=== PATIENT | male | born 1955 | race Caucasian/White ===

== ENCOUNTER 2018-06-01 06:31 | Day surgery (SDC) | payer BC ==
[2018-06-01] VITALS (9 sets, daily range): BP systolic 92–106; BP diastolic 59–69
[~2018-06-01] VITALS: Ht 180.3 cm; Wt 68.0 kg
[~2018-06-01 06:31] MED LIST: naproxen PO
--- NOTE | 2018-06-01 06:59 | Anethesia Preoperative Eval ---
Anesthesia Pre-op PMH/ROS General Date of Evaluation: Jun 01, 2018 Time of Evaluation: 06:57 Anesthesiologist: eddie ASA Score: ASA 2 Mallampati Score Class I : Soft palate, uvula, fauces, pillars visible Class II: Soft palate, uvula, fauces visible Class III: Soft palate, base of uvula visible Class IV: Only hard plate visible Mallampati Classification: Class II Surgeon: sarwat Diagnosis: colon screening Surgical Procedure: colonoscopy Anesthesia History: none Social History: smoking - nonsmoker Family History: no anesthesia problems Allergies: Coded Allergies: No Known Allergies (Unverified , 05/24/13) Medications: see eMAR Patient NPO?: Yes Past Medical History Cardiovascular: Reports: arrhythmia - sinus bradycardia Hematology/Immune: Reports: other - cancer Musculoskeletal/Integumentary: Reports: other - bilateral knee sx, shoulder sx , wrist sx PSxH Narrative: bilateral knee sx, shoulder sx, wrist sx Anesthesia Pre-op Phys. Exam Physician Exam Constitutional: NAD Neurologic: CN 2-12 intact Cardiovascular: RRR Respiratory: CTA Gastrointestinal: S/NT/ND Airway Exam Mallampati Score: Class II MO: full Neck: flexible TMD: 2fb ROM: limited Anesthesia Pre-op A/P Studies Pre-op Studies: EKG - sinus bradycardia, rbbb Risk Assessment & Plan Assessment: asa2 Plan: mac Status Change Before Surgery: No Pre-Antibiotics Drug: Leidy Booekr MD Jun 01, 2018 06:59
[2018-06-01] MEDS ORDERED: fentaNYL 100 mcg/2 mL IV PRN (07:00)
[2018-06-01] MEDS ORDERED: DiphenhydrAMINE 50mg/ml Inj IVP PRN (07:00)
[2018-06-01] MEDS ORDERED: Atropine Inj 1mg/10ml Syr IV PRN (07:00)
[2018-06-01] MEDS ORDERED: Midazolam 2mg/2ml Inj IVP PRN (07:00)
[2018-06-01] MEDS ORDERED: NKM (07:29)
[2018-06-01] MEDS ORDERED: Lidocaine 1% MPF 10mg/ml 5ml ONE (09:06)
[2018-06-01] MEDS ORDERED: Propofol 200mg/20ml IV ONE (09:06)
[2018-06-01] MEDS ORDERED: Atropine Sulfate 0.4mg/ml inj ONE (09:06)
--- NOTE | 2018-06-01 09:08 | Short Stay Surgery H&P ---
History of Present Illness History of Present Illness Chief Complaint screening HPI Tej Garcia is a 62 year old male who was admitted on for Colon Screening Patient History Allergies: Coded Allergies: No Known Allergies (Unverified , 05/24/13) Medication History Scheduled No Known Medications* (NKM - No Known Medications*), 0 ., (Reported) Discontinued Medications [naproxen], 600 MG PO DAILY, (Reported) Discontinued Reason: Pt stopped taking med Review of Systems Cardiovascular: Reports: no symptoms Respiratory: Reports: no symptoms Skeletal: Reports: no symptoms Gastrointestinal: Reports: no symptoms Genitourinary: Reports: no symptoms Neurologic: Reports: no symptoms Endocrine: Reports: no symptoms Physical Exam Vital Signs Last Vital Signs Date Time Temp Pulse Resp B/P (MAP) Pulse Ox O2 Delivery O2 Flow Rate FiO2 06/01/18 07:29 Room Air 06/01/18 07:15 96.8 58 18 99/64 96 Skin: normal HENT: normal Heart: normal Lungs: normal Abdomen: normal Extremities: normal Plan Plan of Care colonoscopy Attestation Are the patient's medical conditions optimized for surgery? Fadi Moreno MD Jun 01, 2018 09:08
--- NOTE | 2018-06-01 09:08 | Pre-Procedure Note/Attestation ---
Pre-Procedure Note/Attestation Complete Prior to Procedure Planned Procedure: not applicable Procedure Narrative: colonoscopy Indications for Procedure Pre-Operative Diagnosis: screening Attestation I attest that I discussed the nature of the procedure; its benefits; risks and complications; and alternatives (and the risks and benefits of such alternatives ), prior to the procedure, with the patient (or the patient's legal sales support representative). I attest that, if there was a reasonable possibility of needing a blood transfusion, the patient (or the patient's legal sales support representative) was given the [facility] standardized written summary, pursuant to the Juanjose Burgess Blood Safety Act ([place] Health and Safety Code # 1645, as amended). I attest that I re-evaluated the patient just prior to the surgery and that there has been no change in the patient's H&P, except as documented below: Fadi Moreno MD Jun 01, 2018 09:08
--- NOTE | 2018-06-01 09:32 | Endoscopy Procedure Note ---
Endoscopy Procedure Note General Indication for Procedure: screening Procedures Performed: colonoscopy Operative Findings/Diagnosis: one polyp Specimen: yes Pt Tolerated Procedure Well: Yes Estimated Blood Loss: none Anesthesia Anesthesiologist: eddie Anesthesia: MAC Inserted Devices Implant(s) used?: No Quality Quality of Bowel Preparation: Good Did scope reach the cecum?: Yes Was there any complications?: No GI Core Measures 50 yrs or older w/o bx or poly: No 10yrs. F/U not recommended: Yes If not recommended, why?: Above average risk 10 yrs. F/U needed: Yes 18 years or older w/prev. colo: Yes <3yrs. since last colonoscopy: No Fadi Moreno MD Jun 01, 2018 09:32
--- NOTE | 2018-06-01 13:07 | Immediate Post-Op Evaluation ---
Immediate Post-Op Evalulation Immediate Post-Op Evalulation Procedure: colonoscopy/bx Date of Evaluation: Jun 01, 2018 Time of Evaluation: 09:47 IV Fluids: 0.9ns 400ml Blood Products: none Estimated Blood Loss: negligible Blood Pressure Systolic: 92 Blood Pressure Diastolic: 59 Pulse Rate: 78 Respiratory Rate: 18 O2 Sat by Pulse Oximetry: 100 Temperature (Fahrenheit): 97.7 Pain Score (1-10): 0 Nausea: No Vomiting: No Complications none Patient Status: awake, reacts, patent Hydration Status: adequate Drug: Leidy Booker MD Jun 01, 2018 13:07
--- NOTE | 2018-06-01 13:09 | 48 Hour Post Anesthesia Eval ---
Post Anesthesia Evaluation Procedure: colonoscopy/bx Date of Evaluation: Jun 01, 2018 Time of Evaluation: 09:49 Blood Pressure Systolic: 103 0: 64 Pulse Rate: 77 Respiratory Rate: 18 Temperature (Fahrenheit): 97.7 O2 Sat by Pulse Oximetry: 100 Airway: patent Nausea: No Vomiting: No Pain Intensity: 0 Hydration Status: adequate Cardiopulmonary Status: stable Mental Status/LOC: patient returned to baseline Post-Anesthesia Complications: none Follow-up care needed: N/A Leidy Campos MD Jun 01, 2018 13:09
--- NOTE | 2018-06-01 19:45 | Procedure Note ---
DATE OF PROCEDURE: 06/01/2018 SURGEON: Fadi Moreno M.D. ANESTHESIOLOGIST: Dr. Lewis. PROCEDURE: Colonoscopy with biopsy. ANESTHESIA: Per Dr. Lewis. INSTRUMENT: Olympus adult flexible colonoscope. INDICATION: Screening colonoscopy. The procedure, risks, benefits, and possible consequences, including hemorrhage, aspiration, perforation and infection, and alternative treatments, were explained to the patient/legal guardian by Dr. Fadi Moreno and the patient/legal guardian understood and accepted these risks. DESCRIPTION OF PROCEDURE: After informed consent was obtained and the patient was adequately sedated, first rectal exam was performed which was positive for internal hemorrhoids. Then, the scope was advanced from the rectum into the cecum documented by appendix orifice, ileocecal valve, and right upper quadrant palpation. Quality of prep was very good. The patient had one polyp in the ascending colon, which measured roughly about 3 mm, removed with the cold biopsy forceps technique. The rest of the exam grossly looked within normal limit. The patient tolerated the procedure very well without any complication. Retroflexion in the rectum showed evidence of medium-sized internal hemorrhoids. SUMMARY OF FINDINGS: 1. One colonic polyp removed, see above for details. 2. Internal hemorrhoids. RECOMMENDATIONS: 1. Follow up biopsy results. 2. We recommend repeat colonoscopy in 5 years. Fadi Moreno M.D. DR: Jason JOB#: [id number] CC:
--- NOTE | 2018-06-02 14:53 | Cardiology Report ---
APPROVED REPORT EKG Measurement Heart [id number] Sinus bradycardia Right bundle branch block Abnormal ECG
== END 2018-06-01 12:30 | disposition home or self-care (01) ==
LOC: GAS 06:31
DX: Z12.11 Encounter for screening for malignant neoplasm of colon (principal); D12.2 Benign neoplasm of ascending colon; K64.8 Other hemorrhoids; R00.1 Bradycardia, unspecified; I45.10 Unspecified right bundle-branch block; Z85.9 Personal history of malignant neoplasm, unspecified
CPT/HCPCS: 45380; 93005; J0461; J2704; 94003; 94150